=== PATIENT | female | born 1975 | race Caucasian/White ===

== ENCOUNTER 2020-05-06 07:55 | Day surgery (SDC) | payer BC ==
[~2020-05-06] VITALS: Ht 170.2 cm; Wt 79.2 kg
[2020-05-06] VITALS (11 sets, daily range): BP systolic 116–139; BP diastolic 69–93; PULSE 49–58; TEMP 97.5–99.1
[2020-05-06] MEDS ORDERED: PROTONIX 40MG T40 MG PO (08:52)
[2020-05-06] MEDS ORDERED: PROZAC 20MG20 MG PO (08:53)
--- NOTE | 2020-05-06 11:42 | NUR ---
PT ARRIVED TO FLOOR, REPORTING PAIN 8/10 IN PELVIC REGION, ABD INCISION SITE INTACT NO BREAKTHROUGH BLEEDING PRESENT, NEW FLUIDS HUNG, PAIN MEDS GIVEN, VITALS CART PLUGGED IN, ASSESSMENT PERFORMED. HS REGULAR, LUNG SOUNDS CTA, BS HYPOACTIVE, SUPERVISOR ASPHALT PAVING EQUAL, PT ORIENTED AND SLIGHTLY DROWSY, IN ROOM AT BEDSIDE, PULSES STRONG, IV IN RFA INTACT NO DRAINAGE, MC DRAINING, WATER BROUGHT IN FOR PT, EDUCATED ON PAIN MEDICATION AND POSSIBLE CONSTIPATION. NO OTHER NEEDS AT THIS TIME.
--- NOTE | 2020-05-06 12:18 | NUR ---
BROUGHT PT ANGEL REQUESTED. PT STATED SHE WAS NOT HUNGRY ENOUGH FOR A FULL LUNCH
--- NOTE | 2020-05-06 12:22 | NUR ---
PT RESTING COMFORTABLY IN ROOM
--- NOTE | 2020-05-06 12:35 | NUR ---
PT REPORTS PAIN IS LESSENING WITH PERCOCET, PT STILL APPEARS TO BE IN MILD DISCOMFORT WHILE AWAKE, WILL REASSESS IN 15MIN, TORADOL ORDERED AND PT AWARE OF THIS OPTION.
--- NOTE | 2020-05-06 13:41 | NUR ---
PT REPORTS PAIN 2/10 AFTER TORADOL ADMINISTRATION. PT APPEARS DROWSY BUT WAKES UP WITH ANY NOISE/DISTURBANCE. PT OPENS EYES SPONTANEOUSLY, STILL SATTING WELL ON RA.
--- NOTE | 2020-05-06 16:14 | NUR ---
PT REPORTING PAIN 4/10, REQUESTED 1 PERCOCET TO "STAY AHEAD OF THE PAIN". MEDICATION GIVEN, WATER REFILLED, NO OTHER NEEDS AT THIS TIME.
--- NOTE | 2020-05-06 18:31 | NUR ---
PT PLEASANT, AOX4, PT REPORTS NORMAL PAIN AT 4/10 BUT SOMETIMES SHOOTING PAIN WILL BREAK THROUGH AND INC PAIN NUMBER. PT VITALS STABLE, ABD SITE CDI, MC DRAINING WELL, NO OTHER NEEDS AT THIS TIME.
--- NOTE | 2020-05-06 18:35 | NUR ---
REASSESSED PAIN AT 2/10 AFTER 2ND PERCOCET.
--- NOTE | 2020-05-06 21:30 | NUR ---
Pt. sitting up in bed at this time. Pt. is A&OX3, assessment complete. IV to rt. forearm patent, IV fluids infusing per orders. Pt. reports pain at a 6 on pain scale, gave pain meds per orders. Pt. denies further needs, call light within reach.
[2020-05-07 04:00] VITALS: BP 124/80; PULSE 50; TEMP 98
--- NOTE | 2020-05-07 07:55 | NUR ---
PATIENT VOIDED FOR THE FIRST TIME POST MC REMOVAL. DISPATCH CLERK DC'D VAG PACKING AND MC PER ORDERS AROUND 0600. UNMEASURED VOID. POST VOID BLADDER SCAN SHOWED 68CC. WILL MONITOR. PATIENT TOLERATING DIET WELL, ATE 100%. NO C/O N/V.
[2020-05-07 08:02] VITALS: BP 126/76; PULSE 53; TEMP 97.7
--- NOTE | 2020-05-07 08:55 | NUR ---
PATIENT HAS VOIDED FOR THE SECOND TIME POST MC REMOVAL. VOIDED 400CC OF CLEAR YELLOW URINE. POST VOID BLADDER SCAN SHOWED 220CC. WILL MONITOR.
--- NOTE | 2020-05-07 10:00 | NUR ---
PATIENT VOIDED FOR THE THIRD TIME POST MC REMOVAL. NOTED 450CC OF CLEAR YELLOW URINE. BLADDER SCAN SHOWED 85CC. PATIENT INDEPENDENT IN ROOM.
--- NOTE | 2020-05-07 11:10 | NUR ---
PATIENT VOIDED 400CC OF CLEAR YELLOW URINE. BLADDER SCAN WAS 159CC. AT BEDSIDE.
[2020-05-07 11:50] VITALS: BP 129/84; PULSE 66; TEMP 97.8
--- NOTE | 2020-05-07 12:00 | NUR ---
VOIDED 200CC WITH A RESIDUAL OF 45CC NOTED.
--- NOTE | 2020-05-07 14:32 | NUR ---
PATIENT DISCHARGING HOME VIA WC TO PERSONAL VEHICLE WITH . GAVE DISCHARGE INSTRUCTIONS, PRESCRIPTIONS AND F/U APT. ANSWERED ALL QUESTIONS/CONCERNS. DC'D RIGHT FORARM IV, COVERED SITE WITH GAUZE & PAPER TAPE. PATIENT REQUESTING PAIN MEDS BEFORE [address], GIVEN. PATIENT DISCHARGED.
== END 2020-05-07 14:34 | disposition home or self-care (01) ==
LOC: SDCO 07:55 → JCC 07:55 → SDCO 10:30 → JCC 12:01 → SDCO 05-07 14:34
DX: N36.42 Intrinsic sphincter deficiency (ISD) (principal); N39.3 Stress incontinence (female) (male); R39.15 Urgency of urination; I10 Essential (primary) hypertension; F17.210 Nicotine dependence, cigarettes, uncomplicated; Z79.899 Other long term (current) drug therapy; Z88.0 Allergy status to penicillin; Z80.0 Family history of malignant neoplasm of digestive organs
CPT/HCPCS: OP; A4314; C1762; J1885; J2405; J2704; J3010; J7120